=== PATIENT | female | born 1955 | race Caucasian/White ===

== ENCOUNTER 2022-12-11 06:15 | Day surgery (SDC) | payer MEDICARE, OTHER, SELFPAY ==
[2022-12-04 08:18] VITALS: BMI 23.6
[2022-12-11] VITALS (13 sets, daily range): BP systolic 100–131; BP diastolic 40–76; PULSE 61–87; RESP 10–18; TEMP 35.8–36.6; O2SAT 96–100; BMI 21.9
--- NOTE | 2022-12-11 | DI.RAD.S_ITS ---
PROCEDURE: XR HIP W PEL IF DONE LT 2V INDICATIONS: TOTAL HIP ANTERIOR TECHNIQUE: 3 fluoroscopic spot films were obtained intraoperatively COMPARISON: None. FINDINGS: Fluoroscopic spot films show appropriate positioning a left total hip arthroplasty. IMPRESSION: 1. Fluoroscopic guidance Approved by: Austin Rossi M.D. on 12/11/2022 at 12:49
--- NOTE | 2022-12-11 06:00 | DI.RAD.S_ITS ---
PROCEDURE: XR HIP W PEL IF DONE LT 2V INDICATIONS: Left JACQUES, anterior TECHNIQUE: AP pelvis and lateral view of the left hip acquired. COMPARISON: [facility], SUSAN, XR HIP W PEL IF DONE LT 2V, 12/11/2022, 9:19. FINDINGS: Bones: Patient is status post left hip arthroplasty, with hardware components in expected positions. The hip joint appears congruent. The visualized bony structures appear intact. Soft tissues: Overlying postoperative changes are noted. No suspicious soft tissue densities. IMPRESSION: Left hip prosthesis in expected position. Dictated by: Ethan Brennan M.D. on 12/11/2022 at 12:47 Approved by: Ethan Brennan M.D. on 12/11/2022 at 12:47
[2022-12-11] MEDS: ACETAMINOPHEN 325 MG TABLET 975 MG PO (06:56)
[2022-12-11] MEDS: LACTATED RINGERS 1,000 ML 42 ML IV ×2 (07:04→09:10)
[2022-12-11] MEDS: VANCOMYCIN 1,000 MG/200 ML PIGGYBACK 200 MG IV (07:07)
--- NOTE | 2022-12-11 07:51 | P.OP_ITS ---
Operative Date/Time/Diagnoses Date of procedure: 12/11/22 Time of procedure: 08:00 Pre-op diagnosis: left hip OA Post-op diagnosis: same Procedure & Clinicians Procedure: Left total hip arthroplasty anterior approach Same procedure as scheduled: Yes Indications: The patient has had progressively worsening left hip pain with radiographic granados ges consistent with arthritis. Non-operative management has failed and the patient has requested total hip replacement. The risks, benefits and alternatives to surgery were discussed with the patient prior to proceeding. Risks discussed included, but were not limited to, failure to relieve pain, leg length discrepancy, dislocation, stiffness, infection, nerve damage, deep venous thrombosis, pulmonary embolism, stroke, coma, heart attack, permanent paralysis and , as well as the potential need for eventual revision of the prosthetic. Surgeon: Smita Selby Structural Metal Fabricator Apprentice: Migue Craft Anesthesia Type: Spinal Operative Notes Findings: Severe left hip OA Closure Type: primary Specimen(s): none sent Prosthetic devices, grafts, tissues, transplants, or devices: Selby and nephew R3 size 56, neutral poly liner,one 6.5 mm screw, polar stem size 3 standard with collar, 36 x +0 Oxinium femoral head Estimated Blood Loss (mL): 250 Blood products transfused: none Procedure in detail: The patient was brought to the operating room. Patient was carefully positioned in the supine position. Time-out was performed and antibiotics were given. Anesthesia was induced. She was positioned in the on the table in order to allow hyperextension of the hip. The left lower extremity was prepped and draped in a standard sterile fashion. An anterior left hip incision was made 1 fingerbreadth lateral to the anterior superior iliac spine and extended distally towards the greater trochanter. Dissection was carried out through skin and subcutaneous tissues. Superficial hemostasis was achieved. The fascia over the tensor fascia bettie was defined and incised with a knife. Two Allis clamps were used to grasp the fascia. Tensor fascia bettie was retracted laterally. A gelpi retractor was placed. Dissection was carried out down along the neck. The circumflex vessels were carefully identified and cauterized with the Aqua Mantis. A PA was used throughout the procedure and was essential for retraction intraoperative positioning safe implantation of the components and assisting with adequate hemostasis. There was good visualization of the femoral neck. A Cobra was placed superior to the neck and the gluteus fibers were carefully stripped from that superior aspect of the capsule. A 2nd retractor was placed along the inferior aspect of the neck. The rectus insertion along the capsule was partially released. A 3rd retractor that was then gently placed over the rim of the acetabulum under the rectus. Capsule was carefully incised and released from the intertrochanteric line circumferentially superior to the mid sagittal line and inferiorly to the mid sagittal line until the lesser trochanter was palpable. A tag stitch was placed both in the superior and inferior limb of the capsular insertion. Along the acetabulum capsule was also released up to the mid sagittal 12:00 position. A portion of the labrum was resected. A saw was used to perform an osteotomy at the level of the intertrochanteric line and the junction of the superior femoral neck leaving approximately 1 finger breath of residual inferior neck above the lesser trochanter. A 2nd cut was made along the femoral neck at the base of the head and a napkin ring of neck was removed. Corkscrew was placed in the femoral head and the head was removed without difficulty. Retractors were then repositioned around the acetabulum. Residual labrum was resected and additional osteophytes were removed. A reamer that was 4 mm below the templated size was placed by hand in the acetabulum and it was reamed to centralize the acetabulum. It was then reamed up to 2 under the templated size and fluoroscopy was brought in to confirm the position of the reaming and depth of reaming. I reamed 1 under the anticipated size and touched the rim with line to line reaming. A trial cup was placed and noted that it was appropriately sized and fluoroscopy confirmed position and depth. There were some cysts in the acetabulum which were carefully curetted and locally bone grafted. The component was open and inserted without difficulty fluoroscopic imaging was used to confirm that the cup had been adequately seated and was well positioned. It was further stabilized with a single screw. Neutral poly liner was placed. The cup was tested and noted to be stable. Attention was then directed to the femur. The femur was gently hyperextended additional capsular release was performed as needed in order to allow adequate visualization of the proximal femur with elevation of the femur. Patient was placed in a hyperextended slightly adducted position with maximum external rotation. Box osteotome was used to check for any residual neck as well as sclerotic bone along the trochanter. [place] pepper was placed in the femur. Additional broaching was performed. Canal finder was used to determine the alignment of the canal and position. Size 1 broach was placed. The canal was then appropriately broached up to the templated size as long as there was adequate stability of the broach and serial advancement of the broach without excessive impingement. Specific attention was directed at avoiding varus attempting to direct the distal aspect of the broach more anteriorly and avoiding excessive anteversion. Trial reduction showed acceptable range of motion, good stability, no posterior impingement, voodoo of leg length and appropriate lateral shuck. I also hyperflexed the hip and checked that there was no impingement anteriorly and there was good stability with flexion, adduction and internal rotation. Marcaine and Exparel were injected. The stem was placed without difficulty. Repeat trial reduction and x-ray showed acceptable overall position, length, and no evidence of the femoral fracture. Final head was placed. Wound was meticulously irrigated with normal saline. The hip was reduced and additional Exparel and Marcaine were injected. The capsule was closed with interrupted nonabsorbable sutures. The fascia of the tensor was closed with interrupted and running Vicryl. No drain was placed. Any tensor fascia bettie muscle that appeared to be contused or injured which was a minimal amount was carefully resected. Capsule around the tensor was injected with Exparel and Marcaine. The skin was closed with barbed stitches for the subcutaneous tissue and skin. We also used surgical glue. The wound was dressed sterilely. Brief Betadine soak was also used and was meticulously irrigated with normal saline. Patient was transferred to recovery room in satisfactory condition. Complications: none Post-operative Condition: stable Disposition: Acute Care Plan for aftercare: The patient will be maintained on a standard total hip replacement protocol with weight bearing as tolerated and anterior hip precautions. The patient will receive Aspirin and sequential compression devices for DVT prophylaxis. The patient will be discharged home when safe for the home environment.
--- NOTE | 2022-12-11 07:51 | PM.PREOP ---
Pre-operative Note Interval Note History & Physical reviewed/Exam performed by Physician: Yes Changes to H&P: No
[2022-12-11] MEDS: CEFAZOLIN 2 GM/100 ML PREMIX 100 ML IV ×3 (08:05→23:10)
[2022-12-11] MEDS: TRANEXAMIC ACID 1,000 MG VIAL 2000 MG INJ ×2 (08:30→10:14)
--- NOTE | 2022-12-11 08:44 | SUR.OPER ---
Supine on padded [place] table with bilateral legs secured in padded positioning boots and suspended in positioning spars, operative leg in traction per surgeon. Head on one pillow. Arm on non-operative side secured on padded armboard <90 degrees abduction. Arm on operative side padded and resting across chest then secured with tape over sheet. Padded perineal post in place per surgeon.
[2022-12-11] MEDS: BUPIVACAINE LIPOSOME 266 MG/20 ML VIAL INJ (08:50)
[2022-12-11] MEDS: BUPIVACAINE 0.25% (PF) 60 ML, EPINEPHrine 0.3 MG INJ (08:51)
[2022-12-11] MEDS: ACETAMINOPHEN 325 MG TABLET 650 MG PO ×2 (13:32→20:01)
[2022-12-11] MEDS: LACTATED RINGERS 1,000 ML 100 ML IV (13:32)
[2022-12-11] MEDS: IBUPROFEN 400 MG TABLET PO ×3 (13:36→20:01)
--- NOTE | 2022-12-11 14:40 | PT.IIE ---
Current Diagnoses Unilateral primary osteoarthritis, left hip (12/11/22) Surgery Performed Operation Date: 12/11/22 07:45 Actual Procedures p Total Hip Arthroplasty-Anterior(Left) - Smita Selby MD Surgical History (Last Updated 12/04/22 @ 09:15 by Mikayla Gaytan, RN) History of bilateral tubal ligation (~1976) History of total right hip replacement (2012) Hx of appendectomy (2002) Hx of colonoscopy Medical History (Last Updated 12/04/22 @ 12:33 by Mikayla Gaytan RN) Anesthesia complication Depression Easy bruisability History of COVID-19 Osteoarthritis Perforated diverticulum (2020) Pre-diabetes Physical Therapy Inpatient Evaluation/Re-Eval M1 PT/OT-IP Prior Functional Status Start: 12/11/22 15:38 Freq: NEEDED Status: Active Protocol: Document 12/11/22 14:40 AB (Rec: 12/11/22 15:49 AB [id number]) Medical Review Prior Functional Status Medical History Reviewed Yes Communication able to make needs known Mobility and Gait pt stated that she is modified independent with all mobilities and ambulation using a 4WW Social History Household Members spouse Living Arrangements House Number of Floors (Floors) One Floor Number of Stairs To Enter/Railing? pt plans to d/c to her friend' s house and her friend will be able to assist 1 step to enter Home Environment High Toilet,Built-In Shower Seat Home Equipment Front Wheel Walker,Four Wheel Walker,Hand Held Shower,Grab Bars Near Toilet,Grab Bars In Shower Additional Social History Comment pt stated that her spouse is disabled and will not be able to assist her; she plans to go to her friend's house upon d/ c has a walk in tub shower with seat M2 PT-IP Current Condition Start: 12/11/22 15:38 Freq: NEEDED Status: Active Protocol: Document 12/11/22 14:40 AB (Rec: 12/11/22 15:49 AB [id number]) Physical Therapy Current Condition Current Condition Evaluation Date 12/11/22 Treatment Diagnosis s/[p L JACQUES anterior approach; difficulty in walking Onset Date 12/11/22 M3 PT-IP Subjective Start: 12/11/22 15:38 Freq: NEEDED Status: Active Protocol: Document 12/11/22 14:40 AB (Rec: 12/11/22 15:49 [id number]) Subjective Physical Therapy Visit Type Type Initial Evaluation Visit Start Time 14:40 Visit Stop Time 15:35 Total Visit Minutes 55 Number of DIRECTOR EXECUTIVE COMMUNICATIONS Visits 0 Physical Therapy Visit Comments Patient Comments agreeable to do PT Therapy Pain Assessment Pain When Pain Assessed At Rest Pain Present Pain Present Pain Reported Location left hip Intensity 3 Scale Used Numeric (0 - 10) Pain Management Techniques Apply Cold,Distraction, Modification of Treatment,Re- positioning,Timing of Activity with Medications M4 PT-IP Mobility and Gait Start: 12/11/22 15:38 Freq: NEEDED Status: Active Protocol: Document 12/11/22 14:40 AB (Rec: 12/11/22 15:49 [id number]) PT-Bed Mobility Assessment Supine to Sit Supine to Sit Standby Assistance PT-Transfer Assessment Sit to and From Stand Sit to and from Stand Contact Guard Assistance,1 Person Assistance,Use of Upper Extremities Equipment Transfer Assistive Device Gait Belt,Front Wheeled Walker Orthotic/Prosthetic Devices or Brace: No Transfer Ability Level of Assist Contact Guard Assistance,1 Person Assistance,Use of Upper Extremities Comments Mobility Comments pt supine in bed. BP: 114/55. educated pt regarding anterior hip precaution and weight bearing status. pt completed supine to sit SBA. able to sit on EOB SBA. no c/ o dizziness. completed sit to stand CGA and cues for techniques. pt tends to pull on FWW to get up. educated on sit<>stand techniques. pt ambulated in room ~ 30 ft using FWW CGA. pt agreed to do stairs. educated pt regarding up/down platform step using FWW. ambulated towards the platform step using FWW CGA. completed up/down platform step using FWW CGA with initial cues but able to complete without cues on 2nd set. ambulated in the hallway ~ 40 ft using FWW SBA to CGA. pt agreed to sit up on the chair. ambulated to the chair using FWW SBA to CGA. positioned pt on the chair. call light and table placed within reach. pt without further concerns. Gait Assessment Gait Gait Assistance Required: Standby Assistance,Contact Guard Assist Distance (Feet) 30 Able to Maintain Weight Bearing Status Yes During Gait Assistive Devices Assistive Device Gait Belt,Front Wheeled Walker Orthotic/Prosthetic Devices or Brace: No Gait Deviations General Gait Pattern Decreased Feet Clearance, Narrow Based Gait Factors Limiting Gait Function Factors Limiting Gait Function Decreased Activity Tolerance, Decreased Strength,Limited Range of Motion,Pain,Poor Balance Stair Climbing Assessment Evaluation Level of Assist On Stairs Contact Guard Assistance Devices Stair Climbing Assistive Devices Front Wheel Walker Technique/Endurance Stair Climbing Direction Ascend and Descend Stair Climbing Technique Step to Step Number of Steps Climbed 1 Query Text: Stair Climbing Set # Repetitions (reps) 2 PT-Balance Assessment Sitting Balance and Reactions Static Sitting Balance Ability Normal Dynamic Sitting Balance Ability Normal Standing Balance and Reactions Static Standing Balance Ability Good Dynamic Standing Balance Ability Fair Device Used FWW M5 PT-IP Objective Assessments Start: 12/11/22 15:38 Freq: NEEDED Status: Active Protocol: Document 12/11/22 14:40 AB (Rec: 12/11/22 15:49 AB [id number]) Orientation Orientation/Cognition Level of Alertness Alert Orientation Name,Place,Situation Language Function Ability No Deficits Noted Safety Awareness Understands Safety Issues Memory Description No Deficits Noted Gross Range of Motion Lower Extremity ROM Assessment Within Functional Limits Strength Lower Extremity Strength Assessment Left Impaired Hip 3+/5 Knee 4+/5 Sensation Assessment Sensation Gross Sensation WNL Muscle Tone Muscle Tone WNL Yes M6 PT-IP Treatment Start: 12/11/22 15:38 Freq: NEEDED Status: Active Protocol: Document 12/11/22 14:40 AB (Rec: 12/11/22 15:49 AB [id number]) Physical Therapy Treatment Education Education Provided Precautions,Weight Bearing Status,Post-Op Packet,Safety M7 PT-IP Assessment and Plan Start: 12/11/22 15:38 Freq: NEEDED Status: Active Protocol: Document 12/11/22 14:40 AB (Rec: 12/11/22 15:49 AB [id number]) PT Summary Assessment and Plan Potential Rehabilitation Potential Good Status of Condition at Evaluation Stable Summary Impairments Pain,ROM,Strength,Balance,Bed Mobility,Transfers,Gait, Activity Tolerance Assessment Summary pt s/p L JACQUES anterior approach POD 0 with WBAT on LLE. pt requiring SBA to CGA with mobility using FWW. pt plans to go home to her friend's house and plans to have her friend assist her if needed. pt has outpt PT set up. pt may go home when medically stable. Goals Bed Mobility Goal Independent Transfer Goal Independent,Front Wheeled Walker Gait Goal Independent,Front Wheel Walker Gait Distance 300 Other Goals up/down 1 platform step using FWW mod I Days to Meet Goals 5 Frequency of Treatment Frequency Of Treatment Twice a Day Treatment Plan Physical Therapy Treatment Plan Bed Mobility Training,Transfer Training,Gait Training, Therapeutic Exercise,Balance Retraining,Post Op Education, Discharge Planning,Hot or Cold Pack,Neuromuscular Re-ed, Coordination Retraining,Manual Therapy Precautions Anterior Hip Precautions No Hip Extension,No Hip External Rotation Weight Bearing Status Weight Bearing Status Weight Bear as Tolerated Allowed Weight Bearing Amount (enter % LLE WBAT or #) (%) Recommendations To Nursing Amount of Assist Needed 1 Person Assist Discharge Recommendations PT Discharge Recommendations Home with Assistance, Outpatient PT Transportation Needs at Discharge Private Vehicle
--- NOTE | 2022-12-11 15:53 | OT.IP.EVAL ---
Current Diagnoses Unilateral primary osteoarthritis, left hip (12/11/22) Surgery Performed Operation Date: 12/11/22 07:45 Actual Procedures p Total Hip Arthroplasty-Anterior(Left) - Smita Selby MD Past Medical History (Last Updated 12/04/22 @ 12:33 by Mikayla Gaytan, RN) Anesthesia complication Depression Easy bruisability History of COVID-19 Osteoarthritis Perforated diverticulum (2020) Pre-diabetes Surgical History (Last Updated 12/04/22 @ 09:15 by Mikayla Gaytan RN) History of bilateral tubal ligation (~1976) History of total right hip replacement (2012) Hx of appendectomy (2002) Hx of colonoscopy Occupational Therapy Inpatient Evaluation/Re-Eval M1 PT/OT-IP Prior Functional Status Start: 12/11/22 16:31 Freq: NEEDED Status: Active Protocol: Document 12/11/22 15:36 [facility] (Rec: 12/11/22 16:40 [facility] [id number]) Medical Review Prior Functional Status Medical History Reviewed Yes Communication able to make needs known Mobility and Gait pt stated that she is modified independent with all mobilities and ambulation using a 4WW Activities of Daily Living and IADL's Independent with ADl and IADL needs assist her with needs. Social History Household Members spouse Living Arrangements House Number of Floors (Floors) One Floor Number of Stairs To Enter/Railing? pt plans to d/c to her friend' s house and her friend will be able to assist 1 step to enter Home Environment High Toilet,Built-In Shower Seat Home Equipment Front Wheel Walker,Four Wheel Walker,Hand Held Shower,Grab Bars Near Toilet,Grab Bars In Shower Additional Social History Comment pt stated that her spouse is disabled and will not be able to assist her; she plans to go to her friend's house upon d/ c has a walk in tub shower with seat M2 OT-IP Current Condition Start: 12/11/22 16:31 Freq: Status: Active Protocol: Document 12/11/22 15:36 [facility] (Rec: 12/11/22 16:40 [facility] [id number]) Occupational Therapy Current Condition Current Condition Evaluation Date 12/11/22 Treatment Diagnosis S/P L JACQUES anterior Diagnosis Onset Date 12/11/22 Post Operative Precautions Anterior Hip Precautions No Hip Extension,No Hip External Rotation M3 OT- IP Subjective and Pain Start: 12/11/22 16:31 Freq: Status: Active Protocol: Document 12/11/22 15:36 [facility] (Rec: 12/11/22 16:40 [facility] [id number]) OT- Subjective Occupational Therapy Visit Type Type Initial Evaluation Visit Start Time 15:36 Visit Stop Time 15:53 Total Visit Minutes 17 Occupational Therapy Visit Comments Patient Comments Pt agreed to get up to use the toilet. Patient/Caregiver Goals To get better. OT Pain Assessment Pain When Pain Assessed At Rest Pain Present Pain Present Pain Reported Location left hip Intensity 3 Scale Used Numeric (0 - 10) M4 OT- IP ADL's Start: 12/11/22 16:31 Freq: Status: Active Protocol: Document 12/11/22 15:36 [facility] (Rec: 12/11/22 16:40 [facility] [id number]) OT OGY-Cldu-Loybimh General Evaluation Self-Feeding Ability Independent OT ADL-Grooming General Evaluation Grooming Ability Independent OT ADL-Oral Care General Eval Oral Care Ability Independent OT ADL-Dressing Comments OT Dressing Comments Pt states to not wear socks and emphasized to the pt not to cross her leg over during dressing needs. OT ADL-Toileting General Evaluation Toileting Ability Independent Comments OT Toileting Comments Suggested pt taper her liquids at night as prior gets up 2-3 times, use of brief/pads so not having to hurry to the bathroom was also suggested. OT ADL-Bathing Comments OT Bathing Comments Not performed. M5 OT- IP IADL's Start: 12/11/22 16:31 Freq: Status: Active Protocol: Document 12/11/22 15:36 [facility] (Rec: 12/11/22 16:40 [facility] [id number]) OT-Instrumental Activities of Daily Living Deficits IADL Deficits Identified Deficits Home Safety Awareness Awareness of Need for Assistance at Home Good Awareness Ability to Problem Solve Emergency Able to Problem Solve Situations M6 OT- IP Functional Cognition Start: 12/11/22 16:31 Freq: Status: Active Protocol: Document 12/11/22 15:36 [facility] (Rec: 12/11/22 16:40 [facility] [id number]) Cognitive Factors Limiting Selfcare Function Cognitive Ability Level of Alertness Alert Patient Orientation Name,Place,Situation Attention Span Ability Capable of Focused Attention, Capable of Sustained Attention Ability to Follow Commands Able to Follow One Step Commands Safety Awareness Decreased Ability to Apply Precautions Cognitive Comments Cognitive Assessment Comments Pt needing occasional reminders to incorporate her precautions while backing up and going forwards. OT- Vision and Hearing OT- Hearing Assessment OT- Hearing Assessment WFL OT- Vision Assessment Visual Acuity Glasses All The Time M7 OT- IP Mobility and Balance Start: 12/11/22 16:31 Freq: Status: Active Protocol: Document 12/11/22 15:36 [facility] (Rec: 12/11/22 16:40 [facility] [id number]) OT-Transfer Assessment Sit to and From Stand Sit to and from Stand Standby Assistance Transfers Transfer Ability Standby Assistance,Contact Guard Assistance Technique Transfer Destination Chair Transfer Technique Stand Step Pivot Devices Transfer Assistive Devices Gait Belt,Front Wheeled Walker Comments Mobility Comments Mostly SBA for all mobility needs and transfers with the FWW. Able to to adjust the FWW wheel outwards versus facing inside fro increased stability with the FWW. OT- Balance Assessment Sitting Balance and Reactions Static Sitting Balance Ability Normal Dynamic Sitting Balance Ability Good Standing Balance and Reactions Static Standing Balance Ability Good Dynamic Standing Balance Ability Good M8 OT- IP Objective Assessments Start: 12/11/22 16:31 Freq: Status: Active Protocol: Document 12/11/22 15:36 [facility] (Rec: 12/11/22 16:40 [facility] [id number]) OT Gross Range of Motion Upper Extremity Range of Motion Assessment Within Functional Limits M9 OT- IP Assessment and Plan Start: 12/11/22 16:31 Freq: Status: Active Protocol: Document 12/11/22 15:36 [facility] (Rec: 12/11/22 16:40 [facility] [id number]) OT Summary Assessment and Plan Potential Rehabilitation Potential Excellent Analytic Complexity at Evaluation Low Summary OT Impairments Pain,Balance,Functional Mobility,Dressing,Bathing Progress Towards Goals Progressing Toward Goals Assessment Summary Pt low complexity and doing well and needing occasional reminders to incorporate her hips precautions during mobility needs. Pt to stay with a friend initially. Pt to go home with assist and have outpt PT. Goals Dressing Goal Independent Toileting Goal Independent Bathing Goal Independent Toilet Transfer Goal Independent Shower Transfer Goal Independent Days to Meet Goals 5 Frequency of Treatment Frequency Of Treatment Once a Day Treatment Plan OT Treatment Plan ADL Training,Functional Mobility,Patient/Family Education,Discharge Planning Discharge Recommendations OT Discharge Recommendations Home with Assistance, Outpatient PT Transportation Needs at Discharge Private Vehicle
--- NOTE | 2022-12-11 18:58 | PC.NURSE ---
Pt arrived at 1215 this afternoon from PACU A&Ox4. VSS, afebrile on RA. She is able to ambulate with FWW, voiding w/o difficulty, and tolerating meals well. Aquacel c/d/i. Instructed on IS, oriented to room, LR at 10 ml/hr. She reports pain well controlled at 3/10 this evening.
[2022-12-11] MEDS: ASPIRIN EC 81 MG TABLET PO (21:35)
[2022-12-11] MEDS: DOCUSATE 100 MG CAPSULE PO (23:10)
[2022-12-12] MEDS: IBUPROFEN 400 MG TABLET PO (00:10)
--- NOTE | 2022-12-12 05:57 | PC.NURSE ---
Patient is A/O x 4, able to make needs known. Able to ambulate to bathroom using FWW, voiding without difficulty. Pain managed with scheduled pain medications and ice pack. VSS, afebrile.
[2022-12-12 06:45] LABS: Hematocrit 31.3 % (36-46); Hemoglobin 10.9 g/dL (12.0-16.0)
[2022-12-12 07:01] VITALS: BP 124/61; PULSE 80; RESP 16; TEMP 36.6; O2SAT 97
--- NOTE | 2022-12-12 07:46 | PM.DS.1 ---
History of Present Illness History of Present Illness Date Patient Seen: 12/12/22 Time Patient Seen: 07:46 Chief complaint: Left JACQUES *OPB* Narrative: Operative Date/Time/Diagnoses Date of procedure: 12/11/22 Time of procedure: 08:00 Pre-op diagnosis: left hip OA Post-op diagnosis: same Procedure & Clinicians Procedure: Left total hip arthroplasty anterior approach Same procedure as scheduled: Yes Indications: The patient has had progressively worsening left hip pain with radiographic changes consistent with arthritis. Non-operative management has failed and the patient has requested total hip replacement. The risks, benefits and alternatives to surgery were discussed with the patient prior to proceeding. Risks discussed included, but were not limited to, failure to relieve pain, leg length discrepancy, dislocation, stiffness, infection, nerve damage, deep venous thrombosis, pulmonary embolism, stroke, coma, heart attack, permanent paralysis and , as well as the potential need for eventual revision of the prosthetic. Surgeon: Smita Selby Gem Stone Cutter: Migue Craft Anesthesia Type: Spinal Operative Notes Findings: Severe left hip OA Closure Type: primary Specimen(s): none sent Prosthetic devices, grafts, tissues, transplants, or devices: Selby and nephew R3 size 56, neutral poly liner,one 6.5 mm screw, polar stem size 3 standard with collar, 36 x +0 Oxinium femoral head Estimated Blood Loss (mL): 250 Blood products transfused: none Discharge Providers Provider Discharge Date: 12/12/22 Consults: 12/04/22 09:51 Consult to Entry Level Account Executive Routine Comment: Interpersonal relationship difficulty w/spouse 12/04/22 12:36 Consult to Anesthesiology Routine Comment: Consulting Provider: Anesthesiologist Reason for consultation: PAC courtesy re: Abnormal Pre-op EKG Consult to Entry Level Account Executive Routine Comment: 12/11/22 06:00 Consult to Anesthesiology Routine Comment: Consulting Provider: Anesthesiologist Reason for consultation: Regional block for post operative pain control 12/11/22 11:19 Consult to Discharge Planning Routine Comment: Consult to Occupational Therapy Evaluate & Treat Comment: Physician Instructions: Evaluate and treat Consult to Physical Therapy Evaluate & Treat Comment: Physician Instructions: post op JACQUES protocol Discharge provider: Ramona Sharpe PA-C Summary Hospital Course Discharge Diagnosis: Left hip osteoarthritis, s/p left total hip arthroplasty Hospital Course: Ms Jimenez'denae hospital course was unremarkable. On the morning of POD# 1, she was feeling well and wanted to go home. She was eating and voiding without difficulty. She was evaluated by PT and felt to be safe for homegoing. Her pain was well-controlled with oral medication. Exam Vital Signs (past 8 hours): - 12/12/22 07:01 Temperature 97.9 F Pulse Rate 80 Respiratory Rate 16 Blood Pressure 124/61 Pulse Oximetry 97 Oxygen Flow Rate 0 Oxygen Delivery Method Room Air Oxygen Flow Rate 0 Narrative Exam Narrative: 5/5 strength in hip flexors, quadriceps, hamstrings, DF, PF, EHL on left. Sensation to light touch intact throughout LLE. Calf soft, compressible, nontender. Aquacel dressing w/ scant bloody drainage; dry and intact. Objective Labs 12/12/22 06:25 Labs: Laboratory Results - last 24 hr 12/12/22 06:25 Hgb 10.9 L Hct 31.3 L PFSH Medical History (Updated 12/04/22 @ 12:33 by Mikayla Gaytan RN) Anesthesia complication Depression Easy bruisability History of COVID-19 Osteoarthritis Perforated diverticulum (2020) Pre-diabetes Surgical History (Updated 12/04/22 @ 09:15 by Mikayla Gaytan RN) History of bilateral tubal ligation (~1976) History of total right hip replacement (2012) Hx of appendectomy (2002) Hx of colonoscopy Social History household members: spouse Smoking Status: Former smoker alcohol intake: current Discharge Assessment & Plan Assessment and Plan Assessment: Left hip osteoarthritis, s/p left total hip arthroplasty Plan of Treatment: Discharge home. Pt has pain med rxs at home. Outpt PT, f/u in office in 2 weeks as scheduled. Discharge Plan Discharge Plan Patient Disposition: Home Discharge orders & Medications Discharge Orders: Discharge (Order); Ordered 12/12/22 Ordered By: Ramona Sharpe Prescriptions: Continued No Known Home Medications Follow up/Referrals: Smita Selby MD [Physician] - As previously scheduled (Follow up w/ Christianne Burris PA-C, on 12/25/2022 @ 3:30 pm at [facility] office in [place].) Diet/Activity/Treatments Diet: Diet as Tolerated Activity: Weightbearing as tolerated to left leg. Anterior hip precautions. Cold/Heat Therapy: Ice to hip as needed for pain. Skin/Wound/Dressing Care Report to your healthcare provider any signs of infection, such as:: chills, fever, night sweats, unusual drainage and unusual redness Dressing: May shower. Leave dressing in place until follow up in office. No bathing or otherwise soaking incision. Call the office if dressing becomes saturated inside. Visit Report/Discharge Packet Instructions: DI for Hip Replacement Stand Alone Forms: Patient Portal/API, Surgery Discharge Discharge Data Attending Provider: Smita Selby VTE Deep Vein Thrombosis/Pulmonary Embolism Present on Admission: No
--- NOTE | 2022-12-12 08:20 | PT.IPTN ---
Current Diagnoses Unilateral primary osteoarthritis, left hip (12/11/22) Surgery Performed Operation Date: 12/11/22 07:45 Actual Procedures p Total Hip Arthroplasty-Anterior(Left) - Smita Selby MD Physical Therapy Treatment Note M2 PT-IP Current Condition Start: 12/11/22 15:38 Freq: NEEDED Status: Active Protocol: Document 12/11/22 14:40 AB (Rec: 12/11/22 15:49 AB [id number]) Physical Therapy Current Condition Current Condition Evaluation Date 12/11/22 Treatment Diagnosis s/[p L JACQUES anterior approach; difficulty in walking Onset Date 12/11/22 M3 PT-IP Subjective Start: 12/11/22 15:38 Freq: NEEDED Status: Active Protocol: Document 12/12/22 08:33 TS (Rec: 12/12/22 08:59 TS [id number]) Subjective Physical Therapy Visit Type Type Treatment Note Visit Start Time 08:20 Visit Stop Time 08:33 Total Visit Minutes 13 Number of SETTER INDUCTION HEATING EQUIPMENT Visits 1 Physical Therapy Visit Comments Patient Comments Pt found up in chair, states she is feeling good and ready to d/c, agreeable to PT. M4 PT-IP Mobility and Gait Start: 12/11/22 15:38 Freq: NEEDED Status: Active Protocol: Document 12/12/22 08:33 TS (Rec: 12/12/22 08:59 TS [id number]) PT-Transfer Assessment Sit to and From Stand Sit to and from Stand Standby Assistance Equipment Transfer Assistive Device Gait Belt,Front Wheeled Walker Orthotic/Prosthetic Devices or Brace: No Comments Mobility Comments Sit to stand from chair with FWW and BUE support pushing from arms of the chair SBA, pt tied gown with no AD support in standing. She ambulated ~ 120' SBA with emerging step thru gait w/FWW, has no buckling or LOB. She performed platform step x1 SBA with FWW , provided cues for sequencing . Pt ambulated back to room into chair. Pt recalled 2/2 precautions and performed post -op exercises of ankle pumps, quad sets, glute sets and heel slides. Pt was left in chair with call light nearby, all needs met, RN notified. Gait Assessment Gait Gait Assistance Required: Standby Assistance Distance (Feet) 120 Able to Maintain Weight Bearing Status Yes During Gait Assistive Devices Assistive Device Gait Belt,Front Wheeled Walker Orthotic/Prosthetic Devices or Brace: No Gait Deviations General Gait Pattern Decreased Feet Clearance, Narrow Based Gait Factors Limiting Gait Function Factors Limiting Gait Function Decreased Strength,Limited Range of Motion,Pain,Poor Balance Comments Gait Comments See mobility comments. Stair Climbing Assessment Evaluation Level of Assist On Stairs Standby Assistance Devices Stair Climbing Assistive Devices Front Wheel Walker Technique/Endurance Stair Climbing Direction Ascend and Descend Stair Climbing Technique Step to Step Number of Steps Climbed 1 Stair Climbing Set # Repetitions (reps) 2 Comments Stair Climbing Comments See mobility comments. PT-Balance Assessment Sitting Balance and Reactions Static Sitting Balance Ability Normal Dynamic Sitting Balance Ability Good Standing Balance and Reactions Static Standing Balance Ability Good Dynamic Standing Balance Ability Good Device Used FWW M5 PT-IP Objective Assessments Start: 12/11/22 15:38 Freq: NEEDED Status: Active Protocol: Document 12/11/22 14:40 AB (Rec: 12/11/22 15:49 AB [id number]) Orientation Orientation/Cognition Level of Alertness Alert Orientation Name,Place,Situation Language Function Ability No Deficits Noted Safety Awareness Understands Safety Issues Memory Description No Deficits Noted Gross Range of Motion Lower Extremity ROM Assessment Within Functional Limits Strength Lower Extremity Strength Assessment Left Impaired Hip 3+/5 Knee 4+/5 Sensation Assessment Sensation Gross Sensation WNL Muscle Tone Muscle Tone WNL Yes M6 PT-IP Treatment Start: 12/11/22 15:38 Freq: NEEDED Status: Active Protocol: Document 12/12/22 08:33 TS (Rec: 12/12/22 08:59 TS [id number]) Physical Therapy Treatment Education Education Provided Precautions,Weight Bearing Status,Post-Op Packet,Safety M7 PT-IP Assessment and Plan Start: 12/11/22 15:38 Freq: NEEDED Status: Active Protocol: Document 12/12/22 08:33 TS (Rec: 12/12/22 08:59 TS [id number]) PT Summary Assessment and Plan Potential Rehabilitation Potential Good Summary Impairments Pain,ROM,Strength,Balance,Bed Mobility,Transfers,Gait, Activity Tolerance Progress Towards Goals Progressing Toward Goals Assessment Summary Pt is progressing well with her mobility this morning. She is SBA for sit to stand w/FWW , has good posture and balance in standing. She progressed her gait to ~120' SBa with FWW and a emerging step thru gait , has no buckling or LOB. Pt ascended and descended platform step x1 SBA with FWW, required some cueing for sequencing. PT recommends home w/assist and outpatient PT. Goals Bed Mobility Goal Independent Transfer Goal Independent,Front Wheeled Walker Gait Goal Independent,Front Wheel Walker Gait Distance 300 Other Goals up/down 1 platform step using FWW mod I Days to Meet Goals 5 Frequency of Treatment Frequency Of Treatment Twice a Day Treatment Plan Physical Therapy Treatment Plan Bed Mobility Training,Transfer Training,Gait Training, Therapeutic Exercise,Balance Retraining,Post Op Education, Discharge Planning,Hot or Cold Pack,Neuromuscular Re-ed, Coordination Retraining,Manual Therapy Precautions Anterior Hip Precautions No Hip Extension,No Hip External Rotation Weight Bearing Status Weight Bearing Status Weight Bear as Tolerated Allowed Weight Bearing Amount (enter % LLE WBAT or #) (%) Recommendations To Nursing Amount of Assist Needed Standby Assistance Discharge Recommendations PT Discharge Recommendations Home with Assistance, Outpatient PT Transportation Needs at Discharge Private Vehicle
[2022-12-12] MEDS: ASPIRIN EC 81 MG TABLET PO (08:54)
--- NOTE | 2022-12-12 10:58 | PC.NURSE ---
Pt is A&OX4 VSS, afebrile on RA. She is able to tolerate ambulating around the room with FWW, and is cleared by PT for discharge home this a.m. She is evaluated by PA this a.m. and cleared for discharge home with follow up on 12/25 with ortho in [facility]. She verbalizes understanding of discharge activity limitations, medications, site care, s/sx of infection as well as follow up appointment. She is escorted via w/ch with all of her belongings including her own FWW by RN to private vehicle for discharge home this a.m. at 1034 this a.m.
--- NOTE | 2022-12-12 11:36 | CM.DANOTE ---
DCP Assessment Note: Patient is a 67yo F here following planned left hip surgery with Dr. Selby on 12.11.22. PCP none listed Payer Medicare and [employer] SCHEDULE SUPERVISOR reviewed EMR. Per PT/OT, home with assistance. Per PT note, patient is planning to d/c to friends house for a few days for assistance. is disabled and unable to help patient with recovery. Patient d/c prior to being seen by this author. No needs identified from staff at this time. Plan: patient to d/c to friend's house, transport with friend in POV, until safe to return home. CM team will follow as needed. VLAD Anton Discharge Planning/Care Management CM Discharge Assessment Start: 12/12/22 11:32 Freq: Status: Active Protocol: Document 12/12/22 11:33 SL (Rec: 12/12/22 11:36 [id number]) Discharge Planning Assessment Assigned Clinical Rehabilitation Aide VLAD Jalloh DPOA/Assigned Designee Name George (son) Contact Information [phone] Advance Directives? No History Provided By Medical Record Prior Living Arrangements House Household Members spouse Type of transporation used prior to Drives own vehicle admit Independent with ADL's Yes Is patient alert and oriented? Yes DME Already Rented / Owned Bath Bench,Elevated Toilet Seat,FWW / Walker Patient/Family Preference OP PT Therapy Barriers to Discharge No Discharge Plan Home Transportation Arrangement friend in POV Whiteboard Updated in Patient Room with No name and ext. # of Clinical Rehabilitation Aide Review Status In Process Next Review Type Continued Stay Review Pre-Anesthesia Assessment Start: 12/04/22 08:18 Freq: Status: Complete Protocol: Document 12/04/22 08:18 CAB (Rec: 12/04/22 09:51 [facility] [id number]) Pre-Anesthesia Assessment PAC Comment Severe vomiting with Propofol Preferred Name Lenore Patient Information Reviewed Via Phone Assessment Assessment Completed With Patient Diagnostic Results BMP/CMP,CBC,EKG,Urinalysis Comment Outside labs/EKG scanned Primary Care Provider Erik Cervantes Seen Specialist in Last 12 Months Yes Specialist Seen Orthopedist Primary Language Tuvaluan Foot Doctor Required No Height 159.39 cm Weight 59.874 kg Body Mass Index (BMI) 23.6 Hearing Ability Normal Visual Assist Glasses Dentition Type Teeth, Natural Present,Teeth, Missing Barriers to Learning None,Visual Hx Anesthesia Reactions Yes: Severe vomiting with Propofol Hx Family Anesthesia Reaction No Hx Malignant Hyperthermia No Hx Blood Transfusions No Anesthesia Review Requested Yes: PAC courtesy re: Abnormal pre-op EKG Maple Products Maker Yes: Interpersonal relationship difficulty w/ caring for pt Additional comment She would like to go to a SNF @ [place] alcohol intake current alcohol intake frequency holidays/special occasions only Smoking Status Former smoker how long ago did patient quit smoking Quit in her 20's Substance Use Type marijuana Comment Pt advised not to smoke marijuana 24 hours prior Pain Present Pain Reported Musculoskeletal Symptoms Abnormal Gait,Back Pain, Difficulty Walking,Joint Pain Patient is completely paralyzed or No completely immobile Prosthesis or Orthotic Device Front Wheel Walker Mental Status Oriented to own ability Is patient on oxygen? No Does patient have CAMARA/SOB No Hx Sleep Apnea No Currently Taking a Beta Nader No Can You Climb a Flight of Stairs Without Yes SOB Hx Chest Pain No Hx SOB No Hx Syncope or Dizziness No Anti-Coagulant Therapy No Has a Nuclear Fuel Enrichment Technician No Cardiac Testing No Hx Pacemaker/ICD No Pacemaker Rep Required? No Cardiac Clearance Received Not Applicable Diet Type At Home Regular Dysphagia No Gastrointestinal Symptoms Constipation,Diarrhea Chronic UTI No Bladder Pattern Incontinent,Nocturia Urinary Catheter Present No Hx Urinary Self Catheterization No Diabetes No: Pre-diabetes HgbA1C 5.7 Date 09/11/22 Patient No Lactating No Hx Drug Resistant Organism No Presence of External or Internal Medical Yes: Right hip prosthesis Devices Have you had any close contact with No someone diagnosed with COVID-19? Received a COVID vaccine? No Marital Status Lives With spouse Current Living Arrangements House Number of Floors (Floors) One Floor Number of Stairs To Enter/Railing? None Comment Interpersonal relationship difficulty w/ caring for pt Does the Patient Have Assistance After No Surgery Patient Discharge Plan Description Custodial Facility/Rehab Comment Pt would like to go to a SNF, states unable/declines to assist Feels Safe in Current Environment Yes Been Physically Hurt or Threatened By a No Person in Current Environment Do you have thoughts of harming yourself None or others? Are you currently considering suicide? No Do you have a plan to hurt yourself or No Plan others? Do You Have Any Spiritual Beliefs That No May Affect Your HC Choices? Do You Have Any Cultural Practices That No May Affect Your HC Choices? Comment Mu-Ism Who Can We Speak to About Patient's Care Family, friends Identifying Code for Release of Patient Declines to issue Information Health Care Proxy/Next of Kin George Byrd (son) Health Care Proxy Emergency Contact Name George Byrd (son) Emergency Contact Advance Directives? No Power of Tobacco Wrapping Machine Tender No PAC Instructions Do not shave/clip surgical site,Durable medical equipment ,Medications to take/avoid, Nasal antibiotic,No ETOH/ petroleum product on skin DOS, NPO,Post-op transportation,Pre -surgical wash,Sturdy shoes/ comfortable clothes,Do not bring valuables and remove jewelry
== END 2022-12-12 10:34 | disposition home or self-care (01) ==
LOC: OR 06:20 → AC 06:20
PROVIDERS: Referring Provider Orthopaedic Surgery; Visit Provider Orthopaedic Surgery
PROC: (CPT 27130; principal; 2022-12-11 07:45)
DX: M16.12 Unilateral primary osteoarthritis, left hip (principal)
CPT/HCPCS: 27130; 36415; 73502; 76000; 85014; 85018; 97116; 97161; 97165; 97530; C1776; C9290; J0171; J0690; J1100; J2250; J2405; J2704